=== PATIENT | male | born 1970 | race American Indian/Alaskan Native ===

== ENCOUNTER 2022-04-09 09:21 | Emergency (ER) | payer BC, OTHER ==
[~2022-04-09] VITALS: Ht 177.8 cm; Wt 120.2 kg
[2022-04-09 11:53] VITALS: BP 167/91
[2022-04-09] MEDS ORDERED: KETOROLAC TROMETH 60MG/2ML VIAL IM ONE (12:45)
[2022-04-09] MEDS ORDERED: IBUP800T27 PO (12:49)
[2022-04-09] MEDS ORDERED: CYCL-837 PO (12:49)
== END 2022-04-09 13:12 | disposition home or self-care (01) ==
LOC: ER 09:21
DX: S46.912A Strain of unspecified muscle, fascia and tendon at shoulder and upper arm level, left arm, initial encounter (principal); X58.XXXA Exposure to other specified factors, initial encounter; Y93.89 Activity, other specified; Y92.89 Other specified places as the place of occurrence of the external cause; Y99.8 Other external cause status
CPT/HCPCS: 73030; 96372; 99283; J1885